=== PATIENT | male | born 1965 | race Caucasian/White ===

== ENCOUNTER 2025-04-08 06:26 | Day surgery (SDC) | payer OTHER, SELFPAY | END 2025-04-08 15:27 | disposition home or self-care (01) | LOC: GI 06:26 | PROVIDERS: ATTENDING PHYSICIAN Internal Medicine | DX: Z12.11 Encounter for screening for malignant neoplasm of colon (principal); Z86.0101 Personal history of adenomatous and serrated colon polyps; Z80.0 Family history of malignant neoplasm of digestive organs; K64.8 Other hemorrhoids; K57.30 Diverticulosis of large intestine without perforation or abscess without bleeding; K64.4 Residual hemorrhoidal skin tags; D12.2 Benign neoplasm of ascending colon; D12.8 Benign neoplasm of rectum; K62.1 Rectal polyp; Z98.0 Intestinal bypass and anastomosis status | CPT/HCPCS: 45385; 45380; 88305 ==